=== PATIENT | female | born 1985 | race African-American/Black ===

== ENCOUNTER 2024-05-01 23:02 | Inpatient (IN) | payer OTHER ==
[2024-05-01] MEDS ORDERED: POLYETHYLENE GLYCOL (HEALTHYLAX) 3350 17 GM PACKET PO PRN (23:34)
[2024-05-01] MEDS ORDERED: NALOXONE (NARCAN) HCL 4 MG/0.1 ML SPRAY NS PRN (23:34)
[2024-05-01] MEDS ORDERED: BISMUTH SUBSALICYLATE 524 MG/30 ML PO PRN (23:34)
[2024-05-01] MEDS ORDERED: LOPERAMIDE HCL 2 MG CAPSULE PO PRN (23:34)
[2024-05-01] MEDS ORDERED: DICYCLOMINE HCL 10 MG CAPSULE PO PRN (23:34)
[2024-05-01] MEDS ORDERED: IBUPROFEN 400 MG TABLET (FP) PO PRN (23:34)
[2024-05-01] MEDS ORDERED: BENZOCAINE/MENTHOL (CHLORASEPTIC ) LOZENGE MM PRN (23:34)
[2024-05-01] MEDS ORDERED: guaiFENesin 600 MG TABLET.ER (FP) PO PRN (23:34)
[2024-05-01] MEDS ORDERED: MAG HYDROX/AL HYDROX/SIMETH 30 ML UNIT-DOSE CUP PO PRN (23:34)
[2024-05-01] MEDS ORDERED: ONDANSETRON *ODT* 4 MG TABLET SL PRN (23:34)
[2024-05-01] MEDS ORDERED: BENZONATATE 200 MG CAPSULE PO PRN (23:34)
[2024-05-01 23:48] VITALS: BMI 24.3
[2024-05-02] MEDS ORDERED: ACETAMINOPHEN 325 MG TABLET (FP) ONE (01:16)
[2024-05-02] MEDS ORDERED: METHOCARBAMOL 500 MG TABLET ONE (01:16)
[2024-05-02] MEDS ORDERED: hydrOXYzine PAMOATE 25 MG CAPSULE (FP) PO ONE (01:16)
[2024-05-02] MEDS: ACETAMINOPHEN 325 MG TABLET (FP) PO PRN (01:19)
[2024-05-02] MEDS: hydrOXYzine PAMOATE 25 MG CAPSULE (FP) PO PRN (01:19)
[2024-05-02] MEDS: NICOTINE 14 MG/24 HOURS TOPICAL PATCH TD SCH (10:10)
[2024-05-02] MEDS: PRENATAL VITAMINS W/ FOLIC ACID TABLET (FP) PO SCH (10:10)
[2024-05-02] MEDS: LORazepam 2 MG TABLET PO SCH (10:11)
[2024-05-02 17:21] LABS: CHLORIDE 102 mmol/L (98-107); POTASSIUM 3.3 mmol/L (3.5-5.1); SODIUM 139 mmol/L (136-145)
[2024-05-02 17:23] LABS: HEMATOCRIT 44.7 % (32.4-45.2); HEMOGLOBIN 14.7 GM/dL (10.7-15.3); MCH 28.9 pg (25.7-33.7); MEAN CELL VOLUME 87.6 fl (80-96); MEAN PLT VOLUME 9.3 fl (7.5-11.1); PLATELET COUNT 219 10^3/uL (134-434); RDW 16.7 % (11.6-15.6); WHITE BLOOD COUNT 4.9 K/mm3 (4.0-10.0)
[2024-05-02 17:24] LABS: CALCIUM 9.7 mg/dL (8.5-10.1)
[2024-05-02 17:25] LABS: ALBUMIN 3.9 g/dl (3.4-5.0); ANION GAP 4 mmol/L (4-13); BLOOD UREA NITROGEN 11.4 mg/dL (7-18); CO2 32 mmol/L (21-32); GLUCOSE,RANDOM 90 mg/dL (74-106)
[2024-05-02 17:28] LABS: CREATININE 0.6 mg/dL (0.55-1.3); SGOT/AST 518 U/L (15-37); SGPT/ALT 826 U/L (13-61)
[2024-05-02 17:30] LABS: BILIRUBIN,TOTAL 0.4 mg/dL (0.2-1); TOT PROT 7.8 g/dl (6.4-8.2)
[2024-05-02 17:31] LABS: ALK PHOS 133 U/L (45-117)
[2024-05-02 18:30] LABS: HIV INTERPRETATION NEGATIVE (NEGATIVE)
[2024-05-02] MEDS: MELATONIN 5 MG TABLETS PO SCH (22:47)
[2024-05-02] MEDS: THIAMINE 100 MG TABLET PO SCH (22:47)
[2024-05-03] MEDS: NICOTINE POLACRILEX 4 MG GUM BUC PRN (18:59)
[2024-05-03] MEDS: IBUPROFEN 600 MG TABLET (FP) PO PRN (23:03)
[2024-05-04] MEDS: LORazepam 1 MG TABLET PO SCH (05:50)
[2024-05-04] MEDS: MAGNESIUM HYDROX 2400MG/30ML ORAL SUSPENSION 30 ML CUP PO PRN (10:09)
[2024-05-04] MEDS: LORazepam 1 MG TABLET PO PRN (13:44)
[2024-05-04 18:21] VITALS: BP 123/74; PULSE 96; RESP 16; TEMP 97.7
[2024-05-05] MEDS ORDERED: LORazepam 0.5 MG TABLET PO PRN
[2024-05-05] MEDS ORDERED: LORazepam 0.5 MG TABLET PO SCH (05:00)
[2024-05-06] MEDS ORDERED: LORazepam 0.5 MG TABLET PO ONE (05:00)
== END 2024-05-04 18:51 | disposition left against medical advice (07) | DRG 770 ==
LOC: YASAS 23:02 → Y6N 23:51
PROVIDERS: ADMIT Allergy & Immunology; ATTEND Allergy & Immunology
PROC: HZ2ZZZZ Detoxification Services for Substance Abuse Treatment (ICD-10-PCS; principal; 2024-05-01)
DX: F10.230 Alcohol dependence with withdrawal, uncomplicated (principal); F12.20 Cannabis dependence, uncomplicated; F17.210 Nicotine dependence, cigarettes, uncomplicated; F10.280 Alcohol dependence with alcohol-induced anxiety disorder; F10.282 Alcohol dependence with alcohol-induced sleep disorder; F32.A Depression, unspecified; R79.89 Other specified abnormal findings of blood chemistry
CPT/HCPCS: 36415; 80053; 80305; 80307; 81025; 82140; 85027; 86780; 87389; 93005; 93010

== ENCOUNTER 2024-07-30 14:37 | Inpatient (IN) | payer OTHER ==
[2024-07-30 15:11] VITALS: BMI 25.0
[2024-07-30] MEDS ORDERED: BISMUTH SUBSALICYLATE 524 MG/30 ML PO PRN (16:09)
[2024-07-30] MEDS ORDERED: MAGNESIUM HYDROX 2400MG/30ML ORAL SUSPENSION 30 ML CUP PO PRN (16:09)
[2024-07-30] MEDS ORDERED: NICOTINE POLACRILEX 2 MG GUM BUC PRN (16:09)
[2024-07-30] MEDS ORDERED: LOPERAMIDE HCL 2 MG CAPSULE PO PRN (16:09)
[2024-07-30] MEDS ORDERED: IBUPROFEN 400 MG TABLET (FP) PO PRN (16:09)
[2024-07-30] MEDS ORDERED: MAG HYDROX/AL HYDROX/SIMETH 30 ML UNIT-DOSE CUP PO PRN (16:09)
[2024-07-30] MEDS ORDERED: ONDANSETRON *ODT* 4 MG TABLET SL PRN (16:09)
[2024-07-30] MEDS ORDERED: guaiFENesin 600 MG TABLET.ER (FP) PO PRN (16:09)
[2024-07-30] MEDS ORDERED: NALOXONE (NARCAN) HCL 4 MG/0.1 ML SPRAY NS PRN (16:09)
[2024-07-30] MEDS ORDERED: NICOTINE POLACRILEX 2 MG LOZENGE BC PRN (16:09)
[2024-07-30] MEDS ORDERED: POLYETHYLENE GLYCOL (HEALTHYLAX) 3350 17 GM PACKET PO PRN (16:09)
[2024-07-30] MEDS ORDERED: BENZONATATE 200 MG CAPSULE PO PRN (16:09)
[2024-07-30] MEDS ORDERED: DICYCLOMINE HCL 10 MG CAPSULE PO PRN (16:09)
[2024-07-30] MEDS ORDERED: IBUPROFEN 600 MG TABLET (FP) PO PRN (16:09)
[2024-07-30] MEDS ORDERED: diazePAM 5 MG TABLET ONE (17:15)
[2024-07-30] MEDS ORDERED: ACETAMINOPHEN 325 MG TABLET (FP) ONE (17:16)
[2024-07-30] MEDS: diazePAM 5 MG TABLET PO SCH (17:17)
[2024-07-30] MEDS: ACETAMINOPHEN 325 MG TABLET (FP) PO PRN (17:18)
[2024-07-30] MEDS: METHOCARBAMOL 500 MG TABLET PO PRN (17:52)
[2024-07-30] MEDS: MELATONIN 5 MG TABLETS PO SCH (21:18)
[2024-07-30] MEDS: THIAMINE 100 MG TABLET PO SCH (21:18)
[2024-07-30] MEDS: diazePAM 5 MG TABLET PO PRN (21:18)
[2024-07-31] MEDS: diazePAM 5 MG TABLET PO SCH (06:27)
[2024-07-31] MEDS: PRENATAL VITAMINS W/ FOLIC ACID TABLET (FP) PO SCH (10:21)
[2024-07-31 11:32] LABS: HEMATOCRIT 40.8 % (34.1-44.9); HEMOGLOBIN 14.3 g/dL (11.2-15.7); MEAN CELL VOLUME 85.5 fl (79.4-94.8); PLATELET COUNT 152 x10^3/uL (182-369); RDW 16.4 % (12.1-16.8)
[2024-07-31 11:35] LABS: CHLORIDE 99 mmol/L (98-107); POTASSIUM 3.3 mmol/L (3.5-5.1); SODIUM 138 mmol/L (136-145)
[2024-07-31 11:52] LABS: ALBUMIN 3.6 g/dl (3.4-5.0); ANION GAP 6 mmol/L (4-13); CALCIUM 9.9 mg/dL (8.5-10.1); CO2 33 mmol/L (21-32)
[2024-07-31 11:53] LABS: BLOOD UREA NITROGEN 9.6 mg/dL (7-18); GLUCOSE,RANDOM 90 mg/dL (74-106)
[2024-07-31 11:55] LABS: SGOT/AST 91 U/L (15-37); SGPT/ALT 125 U/L (13-61)
[2024-07-31 11:56] LABS: BILIRUBIN,TOTAL 1.5 mg/dL (0.2-1); CREATININE 0.7 mg/dL (0.55-1.3); TOT PROT 6.9 g/dl (6.4-8.2)
[2024-07-31 11:57] LABS: ALK PHOS 105 U/L (45-117)
[2024-07-31] MEDS ORDERED: BENZOCAINE/MENTH/CETYLPYRD CL 1 EACH LOZENGE MM PRN (17:04)
[2024-07-31] MEDS: POTASSIUM CHLORIDE TABS 20 MEQ TABLET.ER (FP) PO ONE (17:39)
[2024-08-01] MEDS: diazePAM 5 MG TABLET PO SCH (05:59)
[2024-08-01] MEDS: BENZOCAINE/MENTHOL (CHLORASEPTIC ) LOZENGE MM PRN (09:54)
[2024-08-02] MEDS: diazePAM 5 MG TABLET PO ONE (06:03)
[2024-08-02 07:49] VITALS: PULSE 81
[2024-08-02 09:58] VITALS: BP 129/70; RESP 18; TEMP 98.2
[2024-08-02 12:58] LABS: POTASSIUM 3.8 mmol/L (3.5-5.1)
[2024-08-02 13:07] LABS: CALCIUM 10.2 mg/dL (8.5-10.1); CREATININE 0.7 mg/dL (0.55-1.3)
== END 2024-08-02 10:05 | disposition home or self-care (01) | DRG 775 ==
LOC: YASAS 14:37 → Y6N 16:57
PROVIDERS: ADMIT Allergy & Immunology; ATTEND Allergy & Immunology
PROC: HZ2ZZZZ Detoxification Services for Substance Abuse Treatment (ICD-10-PCS; principal; 2024-07-30)
DX: F10.230 Alcohol dependence with withdrawal, uncomplicated (principal); F17.210 Nicotine dependence, cigarettes, uncomplicated; F10.282 Alcohol dependence with alcohol-induced sleep disorder; F10.280 Alcohol dependence with alcohol-induced anxiety disorder; F32.A Depression, unspecified; E87.6 Hypokalemia
CPT/HCPCS: 0241U-QW; 36415; 80048; 80053; 80305; 80307; 81025; 85027; 86780; 93005; 93010